=== PATIENT | female | born 1980 | race Caucasian/White ===

== ENCOUNTER 2017-03-27 14:40 | Outpatient (CLI) | payer OTHER ==
[~2017-03-27 14:40] MED LIST: CELEXA20 MG PO; CONCERTA18 MG PO; NORCO 5-325 TA1 EACH PO; RITALIN10 MG PO
--- NOTE | 2017-03-27 15:22 | Diagnostic Imaging Report ---
Indications: PAIN Technique: 4 views of the left knee Comparison: None Findings: No acute fractures. No dislocations. Joint spaces are preserved. No radiopaque foreign body. Normal mineralization. Impression: No acute process
== END 2017-03-27 16:40 | disposition home or self-care (01) ==
LOC: RAD 14:40
DX: M25.562 Pain in left knee (principal)

== ENCOUNTER 2017-05-15 06:02 | Day surgery (SDC) | payer OTHER ==
[~2017-05-15] VITALS: Ht 162.6 cm; Wt 63.5 kg
[2017-05-15] VITALS (11 sets, daily range): BP systolic 88–117; BP diastolic 59–76
[~2017-05-15 06:02] MED LIST changes: +ADDERAL20 MG ORAL; +ALPRAZOLAM0.25 MG ORAL; +Clindamycin 600mg 50 ML IV ONE; +RITALIN10 MG ORAL; +ZYRTEC10 MG ORAL; +ceFAZolin 1gm in D5W 55ml IVP ONE; +celeBREX 200mg Cap **SURGERY PATIENTS ONLY ORAL ONE; +oxyCONTIN 20mg tab ORAL ONE
--- NOTE | 2017-05-15 07:12 | Pre-Procedure Note/Attestation ---
Pre-Procedure Note/Attestation Complete Prior to Procedure Planned Procedure: left Procedure Narrative: knee arthroscopic acl reconstruction, possible menisectomy Indications for Procedure Pre-Operative Diagnosis: left knee acl tear Attestation I attest that I discussed the nature of the procedure; its benefits; risks and complications; and alternatives (and the risks and benefits of such alternatives ), prior to the procedure, with the patient (or the patient's legal support representative). I attest that, if there was a reasonable possibility of needing a blood transfusion, the patient (or the patient's legal support representative) was given the [facility] standardized written summary, pursuant to the Adrian Netarts Blood Safety Act ([place] Health and Safety Code # 1645, as amended). I attest that I re-evaluated the patient just prior to the surgery and that there has been no change in the patient's H&P, except as documented below: DENNIS BULLOCK May 15, 2017 07:12
--- NOTE | 2017-05-15 07:12 | Operative Note - PDOC ---
Operative Note Operative Note Pre-op Diagnosis: left knee acl tear Procedure: see op report Post-op Diagnosis: same as pre-op plus Operative Findings: consistent w/pre-op dx studies Anesthesia: MAC Specimen: none Complications: none Condition: stable Estimated Blood Loss: none Implant(s) used?: Yes DENNIS BULLOCK May 15, 2017 07:12
[2017-05-15] MEDS ORDERED: LR 1000ml ONE (08:00)
[2017-05-15] MEDS ORDERED: Propofol 200mg/20ml IV ONE (08:00)
[2017-05-15] MEDS ORDERED: NS Irrig 4000ml IRRIG ONE ×2 (08:00→08:30)
[2017-05-15] MEDS ORDERED: fentaNYL 100 mcg/2 mL IV ONE (08:00)
[2017-05-15] MEDS ORDERED: Sterile Water Irrig 1000ml IRRIG ONE (08:00)
[2017-05-15] MEDS ORDERED: Bupivacaine 0.25% Inj 30ml INJ ONE ×2 (08:07→11:56)
[2017-05-15] MEDS ORDERED: Ketorolac 30mg Inj ONE ×2 (08:07→08:30)
[2017-05-15] MEDS ORDERED: Lidocaine 1% 10mg/ml/Epi 0.005mg/ml 30ml vial INJ ONE (08:07)
[2017-05-15] MEDS ORDERED: Bupivacaine 0.5% Inj 30 ml vial INJ ONE ×2 (08:07→10:36)
[2017-05-15] MEDS ORDERED: Morphine Sulfate PF 10 ML ONE (08:07)
[2017-05-15] MEDS ORDERED: Kenalog-40 1ml Vial ONE (08:07)
[2017-05-15] MEDS ORDERED: Duramorph PF 10mg/10ml amp EPIDUR ONE (08:30)
[2017-05-15] MEDS ORDERED: EPINEPHrine 1mg/1ml Amp ONE (10:02)
--- NOTE | 2017-05-15 10:11 | Anethesia Preoperative Eval ---
Anesthesia Pre-op PMH/ROS General Date of Evaluation: May 15, 2017 Time of Evaluation: 08:00 ASA Score: ASA 1 Mallampati Score Class I : Soft palate, uvula, fauces, pillars visible Class II: Soft palate, uvula, fauces visible Class III: Soft palate, base of uvula visible Class IV: Only hard plate visible Mallampati Classification: Class I Allergies: Coded Allergies: CARISOPRODOL (Verified Allergy, Mild, Hives, 06/02/12) Anesthesia Pre-op Phys. Exam Physician Exam Last Vital Signs Date Time Temp Pulse Resp B/P (MAP) Pulse Ox O2 Delivery O2 Flow Rate FiO2 05/15/17 07:02 97.3 81 20 116/76 100 Room Air Airway Exam Mallampati Score: Class I Anesthesia Pre-op A/P Labs Urine Test Test 05/15/17 06:25 Urine HCG, Qualitative Negative Briana Beltran MD May 15, 2017 10:11
[2017-05-15] MEDS ORDERED: fentaNYL 100 mcg/2 mL IV PRN (10:15)
[2017-05-15] MEDS ORDERED: Hydromorphone 0.5mg/0.5ml inj IVP PRN (10:15)
[2017-05-15] MEDS ORDERED: Ketorolac 30mg Inj IV PRN (10:15)
[2017-05-15] MEDS ORDERED: Ropivacaine 5mg/ml Vial 20ml INJ ONE ×2 (10:36→11:56)
--- NOTE | 2017-05-15 10:52 | Immediate Post-Op Evaluation ---
Immediate Post-Op Evalulation Immediate Post-Op Evalulation Procedure: left knee arthroscopy and ACL Date of Evaluation: May 15, 2017 Time of Evaluation: 10:52 Nausea: No Vomiting: No Given Within 1 Hr of Incision: Yes Briana Beltran MD May 15, 2017 10:52
[2017-05-15] MEDS ORDERED: D5 1/2NS 1,000 ML IV SCH (15:01)
[2017-05-15] MEDS ORDERED: Norco 5mg/325mg tab ORAL PRN (15:01)
[2017-05-15] MEDS ORDERED: HYDROmorphone 1mg/ml Carpuject SUBQ PRN (15:01)
[2017-05-15] MEDS ORDERED: Tylenol #3 tab (300mg/30mg) ORAL PRN (15:01)
--- NOTE | 2017-05-15 19:15 | Operative Note - Dictated ---
DATE OF OPERATION: 05/15/2017 PREOPERATIVE DIAGNOSIS: Left knee anterior cruciate ligament tear. POSTOPERATIVE DIAGNOSES: 1. Left knee anterior cruciate ligament tear. 2. Left knee lateral meniscus tear. PROCEDURES: 1. Left knee arthroscopic anterior cruciate ligament reconstruction tibialis anterior allograft. 2. Left partial lateral meniscectomy posterior horn less than 15%. 3. Synovectomy medial lateral patellofemoral compartment. SURGEON: Vineet Ragsdale M.D. ANESTHESIA: Femoral adductor with general. Indication For Procedure: The patient is a pleasant 37-year-old female, who sustained injury to her left knee. She has significant pain and instability. She had a MRI, which showed a complete anterior cruciate ligament tear. She had instability and elected to undergo a left anterior cruciate ligament reconstruction with tibialis anterior allograft. Risks, limitations, expectations and complications of the procedure were discussed in detail. All questions addressed. Description Of Procedure: An informed consent was obtained. The patient was brought to the operating room, placed supine under general anesthesia. The patient's left leg was then carefully prepped and draped in a sterile manner. Time-out was performed. The tibialis anterior allograft was then prepared on the back table. Examination under anesthesia showed a positive reverse pivot shift test as well as positive Martha testing. An inferolateral stab incision then made, trocar introduced into the knee joint. There is no chondral damage of the patellofemoral compartment. There is hypertrophic synovial tissue in the retropatellar spacer. Synovial tissue medially was hypertrophic. Medial working portal was established. Synovectomy was performed to better visualize the medial compartment. Medial compartment was entered free of any meniscal chondral damage. Intercondylar notch was entered. There were empty lateral tang of the lateral femoral condyle. Lateral compartment was then entered. There was some fraying of the posterior horn at the root. Partial meniscectomy was performed and less than 15% of the posterior horn was debrided down to stable remnant tissue. At this point, the anterior cruciate ligament stump was debrided. The femoral tunnel as well as tibial tunnel was prepared. The tibialis anterior allograft which was fashioned on the back table was then passed through the tibial tunnel, intercondylar notch, and femoral tunnels and secured with the Biomet Toggle Lock. The graft was then tensioned and a 10 x 35 interference screw and tibial interference screw was then placed. Once that was done, the instruments removed. Portal sites was closed using 3-0 Monocryl sutures. Steri-Strips and a sterile dressing were applied. The patient was awoken and taken to recovery with stable signs. EBL: Minimal. COMPLICATIONS: None. SPECIMENS: None. IMPLANTS: 1. Biomet Toggle Lock suture relay. 2. Tibialis anterior allograft. 3. Tibial interference screw. Vineet Ragsdale M.D. DR: APOORVA JOB#: [id number] CC:
== END 2017-05-15 15:00 | disposition home or self-care (01) ==
LOC: SUR 06:02
DX: M23.252 Derangement of posterior horn of lateral meniscus due to old tear or injury, left knee (principal); S83.512A Sprain of anterior cruciate ligament of left knee, initial encounter; X58.XXXA Exposure to other specified factors, initial encounter; Y93.9 Activity, unspecified; Y92.9 Unspecified place or not applicable; Z88.8 Allergy status to other drugs, medicaments and biological substances
CPT/HCPCS: 29881; 29888; 81025; 97161; C1713; J0171; J0690; J1885; J2274; J2704; J2795; J3010; J3301; J3490; J7120; 94003; 94150